=== PATIENT | male | born 1965 | race Caucasian/White ===

== ENCOUNTER 2024-03-01 08:34 | Emergency (ER) | payer SELFPAY ==
[2024-03-01] MEDS ORDERED: fentaNYL 50 mcg/mL 1 mL Vial ONE (08:57)
== END 2024-03-01 10:18 | disposition home or self-care (01) ==
LOC: MADERS 08:34
DX: S43.52XA Sprain of left acromioclavicular joint, initial encounter (principal); I25.10 Atherosclerotic heart disease of native coronary artery without angina pectoris; I25.2 Old myocardial infarction; I10 Essential (primary) hypertension; Z95.5 Presence of coronary angioplasty implant and graft; W10.9XXA Fall (on) (from) unspecified stairs and steps, initial encounter; Y93.01 Activity, walking, marching and hiking
CPT/HCPCS: 71045; 96374; J3010

== ENCOUNTER 2025-02-11 12:30 | Emergency (ER) | payer SELFPAY | END 2025-02-11 13:07 | disposition left against medical advice (07) | LOC: MADERS 12:30 | DX: Z53.21 Procedure and treatment not carried out due to patient leaving prior to being seen by health care provider (principal) | CPT/HCPCS: 93005 ==